=== PATIENT | male | born 1985 | race African-American/Black ===

== ENCOUNTER 2020-01-14 13:23 | Emergency (ER) | payer MEDICAID ==
[~2020-01-14] VITALS: Ht 170.2 cm; Wt 77.3 kg
[2020-01-14] MEDS ORDERED: IBUPROFEN 800 MG TABLET PO ONE (14:15)
[2020-01-14] MEDS ORDERED: POVIDONE-IODINE 10% 15 ML SOLUTION UD TP ONE (14:15)
[2020-01-14] MEDS ORDERED: LIDOCAINE 1% 10 ML VIAL INJ ONE (14:15)
[2020-01-14] MEDS ORDERED: LORazepam 2 MG/ML VIAL ONE (15:40)
[2020-01-14] MEDS ORDERED: HALOPERIDOL LACTATE 5 MG/ML VIAL ONE (15:40)
[2020-01-14] MEDS ORDERED: DiphenhydrAMINE HCL 50 MG/ML VIAL ONE (15:40)
[2020-01-14 16:21] VITALS: BP 133/79
== END 2020-01-14 16:23 | disposition home or self-care (01) ==
LOC: EMS 13:42
DX: L03.114 Cellulitis of left upper limb (principal); L02.414 Cutaneous abscess of left upper limb; F17.210 Nicotine dependence, cigarettes, uncomplicated
CPT/HCPCS: 10060; 99283; J3490; J1200; J1630; J2060

== ENCOUNTER → 2024-11-28 | Emergency (ER) | payer MEDICAID ==
[~2024-11-28] VITALS: Ht 170.2 cm; Wt 104.5 kg
[2024-11-28 20:40] VITALS: BP 147/98; PULSE 104; RESP 20; TEMP 98.1; O2SAT 97
== END | disposition left against medical advice (07) ==
LOC: EMS 20:29
DX: Z76.0 Encounter for issue of repeat prescription (principal); Z53.21 Procedure and treatment not carried out due to patient leaving prior to being seen by health care provider